=== PATIENT | male | born 1985 | race Caucasian/White ===

== ENCOUNTER 2017-03-07 22:01 | Emergency (ER) | payer SELFPAY ==
[~2017-03-07] VITALS: Ht 180.3 cm; Wt 78.0 kg
[~2017-03-07 22:01] MED LIST: ACET325 PO; ATOR20TA42 PO; CYCL-36 PO; ECOT81TA2 PO; LEVE500 PO; NAPR-576 PO; REME15TA PO
[2017-03-07 22:04] VITALS: BP 130/79; PULSE 71; RESP 16; TEMP 98.1; O2SAT 99
[2017-03-07] MEDS ORDERED: IBUPROFEN 800 MG TAB PO ONE (23:00)
--- NOTE | 2017-03-07 23:48 | PD ---
HPI Chief Complaint: ENT Complaint Time Seen by Provider: 23:46 Travel History International Travel<30 days: No Contact w/Intl Traveler<30days: No Traveled to known affect area: No History of Present Illness HPI 31-year-old male with no significant medical history presents to the emergency department for evaluation of sore throat. Patient denies fever or chills. States that his throat with some worsening over last 2 days. His cough and has the same thing. Denies any cough or chest congestion. No vomiting, diarrhea.Noothersymptomstoreport. PFSH Past Medical History Asthma: No Autoimmune Disease: No Blood Disorders: Yes (PT. 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 ) Psychiatric: Yes Reproductive: No Respiratory: No Migraines: Yes Radiation Therapy: No Seizures: Yes (<1YEAR) Sickle Cell Disease: No PNEUMOCCOCAL Vaccine (Year): 2 Past Surgical History Abdominal Surgery: No AICD: No Arteriovenous Shunt: No Body Medical Devices: anerysm clips. Cardiac Surgery: No Genitourinary Surgery: No Gynecologic Surgery: No Insulin Pump: No Neurologic Surgery: Yes (CEREBRAL ANEURYSM REPAIR X2 2004, 2 CLIPS ) Pacemaker: No Thoracic Surgery: No Other Surgery: Yes (anerysm clips, hand surgery) Social History Alcohol Use: No Tobacco Use: Yes (1/2 ppd) Substance Use: Yes (marijuana) Allergies-Medications (Allergen,Severity, Reaction): Coded Allergies: Codeine (Verified Allergy, Severe, Rash, 08/17/16) Lexapro (Verified Allergy, Severe, Psychosis, 03/07/17) MRI PRECAUTION (Verified Allergy, Severe, PER DR. CALLEJAS ANEURYSM CLIPS 01/19, 08/17/16) Tylenol #3 (Verified Allergy, Severe, HIVES, RASH, 08/17/16) PT. DENIES Reported Meds & Prescriptions Reported Meds & Active Scripts Active Flexeril (Cyclobenzaprine HCl) 10 Mg Tab 10 Mg PO TID Naproxen 500 Mg Tab 500 Mg PO BID PRN Tylenol (Acetaminophen) 325 Mg Tab 650 Mg PO Q4H PRN Ecotrin (Aspirin) 81 Mg Tabec 81 Mg PO DAILY Lipitor 20 Mg Tab (Atorvastatin) 20 Mg Tab 20 Mg PO HS 30 Days Keppra (Levetriacetam) 500 Mg Tab 750 Mg PO BID Reported Remeron 15 mg (Mirtazapine) 15 Mg Tab 1 Tab PO HS Keppra (Levetriacetam) 500 Mg Tab 500 Mg PO BID Review of Systems Except as stated in HPI: all other systems reviewed are Neg Physical Exam Narrative GENERAL: Well-nourished, well-developed male patient in no acute distress SKIN: Focused skin assessment warm/dry. HEAD: Normocephalic. Atraumatic EYES: No scleral icterus. No injection or drainage. ENT: Mucosa pink and moist. Exit erythema, without exudates.. No uvular edema. No uvular, palatal, or tonsillar deviation. Airway patent. Nasal turbinates appear normal without nasal blood, purulent drainage or septal hematoma. NECK: Supple, trachea midline. Anterior cervical lymphadenopathy. CARDIOVASCULAR: Regular rate and rhythm without murmurs, gallops, or rubs. RESPIRATORY: Breath sounds equal bilaterally. No accessory muscle use. MUSCULOSKELETAL: No cyanosis, or edema. BACK: Nontender without obvious deformity. No CVA tenderness. Data Data Last Documented VS Vital Signs Date Time Temp Pulse Resp B/P Pulse Ox O2 Delivery O2 Flow Rate FiO2 03/07/17 22:04 98.1 71 16 130/79 99 Room Air Orders Group A Rapid Strep Screen (03/07/17 22:53) Ibuprofen (Motrin) (03/07/17 23:00) Strep Culture (Group A) (03/07/17 23:20) MDM Medical Decision Making Medical Screen Exam Complete: Yes Emergency Medical Condition: Yes Medical Record Reviewed: Yes Differential Diagnosis Pharyngitis viral versus strep versus tonsillitis versus allergies Narrative Course 31-year-old male presents to emergency department for evaluation of sore throat. Physical exam is consistent with a pharyngitis. Strep screen is negative. I examined the patient the culture would be sent and if it does grow positive, he will be contacted and started on oral antibiotic but for now I recommend symptom control. He agrees at this clinic care. He agrees to return immediately with any acute worsening of symptoms. Diagnosis Primary Impression: Pharyngitis Qualified Code: J02.9 - Pharyngitis, unspecified etiology Referrals: Primary Care Physician Patient Instructions: General Instructions Departure Forms: Tests/Procedures Additional Instructions: Warm salt water gargles may help to alleviate symptoms Tylenol and/or ibuprofen as directed on the package as needed for fever and/or pain Avoid acidic and abrasive food Initial strep screen is negative; if the culture grows positive, you will receive a phone call in 2-3 days Return immediately with any acute worsening of symptoms Med/Other Pt SpecificInfo: No Change to Meds Disposition: 01 DISCHARGE HOME Condition: Stable Mony Stringer March 07, 2017 23:48
== END 2017-03-08 00:18 | disposition home or self-care (01) ==
LOC: NEPK 22:01
DX: J02.9 Acute pharyngitis, unspecified (principal); F17.200 Nicotine dependence, unspecified, uncomplicated
CPT/HCPCS: 87081; 87880; 99282

== ENCOUNTER 2017-08-20 02:27 | Emergency (ER) | payer SELFPAY ==
[~2017-08-20] VITALS: Ht 185.4 cm; Wt 110.0 kg
[2017-08-20 02:37] VITALS: BP 149/88; PULSE 94; RESP 26; O2SAT 97
--- NOTE | 2017-08-20 02:56 | PD ---
HPI Chief Complaint: OD/ Ingestion Time Seen by Provider: 02:56 Travel History International Travel<30 days: No Contact w/Intl Traveler<30days: No Traveled to known affect area: No History of Present Illness HPI Patient 32-year-old male presents emergency department after snorting what he thought was Dilaudid. Patient had to be given Narcan prior to arrival 0.4 mg 2. He had return of spontaneous respirations afterwards. Patient complains of diffuse body aches after Narcan dose given but has no specific physical complaints . he states that he "did something stupid" and states that he is upset that he relapsed. Denies any chest pain shortness breath abdominal pain nausea vomiting. PFSH Past Medical History Asthma: No Autoimmune Disease: No Blood Disorders: Yes (PT. 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 ) Psychiatric: Yes Reproductive: No Respiratory: No Migraines: Yes Radiation Therapy: No Seizures: Yes (<1YEAR) Sickle Cell Disease: No PNEUMOCCOCAL Vaccine (Year): 2 Past Surgical History Abdominal Surgery: No AICD: No Arteriovenous Shunt: No Body Medical Devices: anerysm clips. Cardiac Surgery: No Genitourinary Surgery: No Gynecologic Surgery: No Insulin Pump: No Neurologic Surgery: Yes (CEREBRAL ANEURYSM REPAIR X2 2004, 2 CLIPS ) Pacemaker: No Thoracic Surgery: No Other Surgery: Yes (anerysm clips, hand surgery) Social History Alcohol Use: Yes Tobacco Use: Yes (1/2 ppd) Substance Use: Yes (marijuana) Allergies-Medications (Allergen,Severity, Reaction): Coded Allergies: MRI PRECAUTION (Verified Allergy, Severe, PER DR. CALLEJAS ANEURYSM CLIPS 01/19, 08/20/17) acetaminophen (Unverified Allergy, Severe, HIVES, RASH, 08/20/17) PT. DENIES codeine (Unverified Allergy, Severe, HIVES, RASH, 08/20/17) PT. DENIES escitalopram (Unverified Allergy, Severe, Psychosis, 08/20/17) Reported Meds & Prescriptions Reported Meds & Active Scripts Active Review of Systems Except as stated in HPI: all other systems reviewed are Neg Physical Exam Narrative GENERAL: Well-developed well-nourished no obvious distress SKIN: Focused skin assessment warm/dry. HEAD: Atraumatic. Normocephalic. EYES: Pupils equal and round. No scleral icterus. No injection or drainage. ENT: No nasal bleeding or discharge. Mucous membranes pink and moist. NECK: Trachea midline. No JVD. CARDIOVASCULAR: Minimally tachycardic with regular rhythm. No murmur appreciated. RESPIRATORY: No accessory muscle use. Clear to auscultation. Breath sounds equal bilaterally. GASTROINTESTINAL: Abdomen soft, non-tender, nondistended. Hepatic and splenic margins not palpable. MUSCULOSKELETAL: No obvious deformities. No clubbing. No cyanosis. No edema. NEUROLOGICAL: Awake and alert. No obvious cranial nerve deficits. Motor grossly within normal limits. Normal speech. PSYCHIATRIC: Appropriate mood and affect; insight and judgment normal. Data Data Last Documented VS Vital Signs Date Time Temp Pulse Resp B/P (MAP) Pulse Ox O2 Delivery O2 Flow Rate FiO2 08/20/17 08:52 08/20/17 03:55 80 12 97 Nasal Cannula 2.00 Orders Orders Ed Discharge Order (08/20/17 09:44) [facility] Medical Decision Making Medical Screen Exam Complete: Yes Emergency Medical Condition: Yes Differential Diagnosis Narcotic overdose, agitation, substance abuse, poor social circumstance. Narrative Course patient snorted unknown substance prior to arrival. thought it was dilaudid. reversed with 0.8 mg narcan in the field. now somewhat somnolent c/o bodyaches after narcan. maintaining saturations. will be allowed to sleep it off in the emergency department and then at reassess could be discharged home. Patient discussed with the oncoming provider at 07 150 change. Diagnosis Primary Impression: Opiate overdose Aramis Sanches MD Aug 20, 2017 02:56
[2017-08-20 03:55] VITALS: BP 138/70; PULSE 80; RESP 12; O2SAT 97
--- NOTE | 2017-08-20 09:45 | PD ---
Data Data Last Documented VS Vital Signs Date Time Temp Pulse Resp B/P (MAP) Pulse Ox O2 Delivery O2 Flow Rate FiO2 08/20/17 08:52 08/20/17 03:55 80 12 97 Nasal Cannula 2.00 Orders Orders Diet Regular Basic (08/20/17 Breakfast) Ed Discharge Order (08/20/17 09:44) MDM Supervised Visit with TUSHAR: No Narrative Course I did not participate in medical care of patient, patient had already been discharged and has left the ER prior to my shift, I was asked to place an "ED Discharge" order. Patient Instructions: General Instructions Departure Forms: Tests/Procedures Disposition: 01 DISCHARGE HOME Marielle Schmidt DO Aug 20, 2017 09:45
== END 2017-08-20 09:48 | disposition home or self-care (01) ==
LOC: NEPD 02:27
DX: T40.601A Poisoning by unspecified narcotics, accidental (unintentional), initial encounter (principal); F17.200 Nicotine dependence, unspecified, uncomplicated
CPT/HCPCS: 99283

== ENCOUNTER 2018-03-07 10:15 | Emergency (ER) | payer SELFPAY ==
[2018-03-07] MEDS: ORPHENADRINE INJ 60 MG/2 ML AMP IM (11:05)
[2018-03-07] MEDS: KETOROLAC TROMETHAMINE 60 MG/2 ML (IM) VIAL IM (11:06)
== END 2018-03-07 11:14 | disposition home or self-care (01) ==
LOC: NEPK 10:15
DX: S39.012A Strain of muscle, fascia and tendon of lower back, initial encounter (principal); X50.9XXA Other and unspecified overexertion or strenuous movements or postures, initial encounter; Y93.F2 Activity, caregiving, lifting
CPT/HCPCS: 96372; 99283-25